=== PATIENT | female | born 1955 | race Caucasian/White ===

== ENCOUNTER 2019-02-11 20:11 | Emergency (ER) | payer MEDICARE, OTHER ==
[~2019-02-11] VITALS: Ht 165.1 cm; Wt 72.1 kg
[2019-02-11] MEDS ORDERED: DORZ10DR11 OP (20:33)
[2019-02-11] MEDS ORDERED: TRAZ-182 PO (20:33)
[2019-02-11] MEDS ORDERED: LEVO-103 PO (20:33)
[2019-02-11] MEDS ORDERED: LATANOPROST OP (20:33)
[2019-02-11] MEDS ORDERED: BRIM5DRO3 OP (20:33)
[2019-02-11] MEDS ORDERED: LEVE500T83 PO (20:33)
--- NOTE | 2019-02-11 20:48 | NUR ---
DIMA HARRIS AT BEDSIDE FOR MSE.
--- NOTE | 2019-02-11 21:02 | NUR ---
PT REQUESTING PSYCH EVAL, BUT REFUSING MEDICAL EVAL/CLEARANCE. ER MD AT BEDSIDE.
--- NOTE | 2019-02-11 21:03 | NUR ---
PT VERBALIZED TO ER MD DESIRE TO LEAVE AMA.
--- NOTE | 2019-02-11 21:08 | NUR ---
Patient does not wish to proceed with medical care recommended by Dr. GIRON. Patient given information related to possible complications, up to and including , which could occur as a result of leaving the hospital at this time. Patient verbalizes understanding of risks involved due to leaving against medical advice. Patient has signed AMA form.
== END 2019-02-11 21:09 | disposition left against medical advice (07) ==
LOC: ER 20:12
DX: R44.0 Auditory hallucinations (principal); F20.9 Schizophrenia, unspecified; E03.9 Hypothyroidism, unspecified; Z79.899 Other long term (current) drug therapy
CPT/HCPCS: A4663